=== PATIENT | female | born 1995 | race Caucasian/White ===

== ENCOUNTER 2017-09-21 07:34 | Emergency (ER) | payer BC ==
[2017-04-25 13:43] VITALS: Wt 55.8 kg
[~2017-09-21 07:34] MED LIST: DOCU-416 PO; IBUP600T22 PO; OMEP-125 PO; ONDA4TAB PO; OXYB10TA16 PO; OXYC-865 PO; TAMS0.4C25 PO
[2017-09-21] MEDS ORDERED: OSE75 FT (07:49)
[2017-09-21] MEDS ORDERED: ONDANSETRON 4 MG/2 ML VIAL IVP ONE (07:50)
[2017-09-21] MEDS ORDERED: MORPHINE 4 MG/ML SDV IVP ONE ×2 (07:50→09:20)
--- NOTE | 2017-09-21 08:10 | ER Report ---
History and Physical Time Seen By MD: 07:30 Hx. of Stated Complaint: PT HAVING R FLANK PAIN FOR 2 DAYS, GETTING WORSE WITH RADIATING PAIN TO RLQ. HX OF KIDNEY STONES HPI/ROS CHIEF COMPLAINT: Right flank pain HISTORY OF PRESENT ILLNESS: Patient is a 22-year-old female who presents to [facility] with complaint of right-sided flank pain. Patient has a history of left- sided kidney stone states similar presentation in terms of character and quality of pain. Patient reports nausea without vomiting. Pain is currently 6 out of 10 in intensity located in the right flank radiation to the groin. Patient denies dysuria hematuria. She denies . She denies any abnormal vaginal bleeding or discharge. REVIEW OF SYSTEMS: Respiratory: No cough, no dyspnea. Cardiovascular: No chest pain, no palpitations. Gastrointestinal: No vomiting, no abdominal pain. Musculoskeletal: No back pain. Allergies: Coded Allergies: Sulfa (Sulfonamide Antibiotics) (Verified Allergy, Intermediate, HIVES , ) Home Meds Active Scripts Famotidine (PEPCID) 20 Mg Tablet, 20 MG PO QDAY, #20 TAB 0 Refills Prov:GERMAIN ARREDONDO MD 09/21/17 Ondansetron (ZOFRAN ODT) 4 Mg Tab.rapdis, 4 MG PO Q8H Y for NAUSEA, #15 TAB.JOSE 0 Refills Prov:GERMAIN ARREDONDO MD 09/21/17 Hydrocodone Bit/Acetaminophen (HYDROCODON-ACETAMINOPHEN 5-325) 1 Each Tablet, 1 EACH PO Q4-6H Y for PAIN, #12 TAB 0 Refills TAKE ONE TABLET BY MOUTH EVERY 4-6 HOURS NEEDED FOR PAIN Prov:GERMAIN ARREDONDO MD 09/21/17 Ondansetron (ZOFRAN ODT) 4 Mg Tab.rapdis, 4 MG PO Q8H Y for NAUSEA, #20 TAB.JOSE 0 Refills Prov:GERMAIN ARREDONDO MD 04/23/17 Reported Medications Oseltamivir Phosphate (TAMIFLU) 75 Mg Cap, 75 MG FT, CAP 09/21/17 Ibuprofen (IBUPROFEN) 600 Mg Tablet, 1 TAB PO Q6H, TAB 04/27/17 Discontinued Reported Medications Oxybutynin Chloride (OXYBUTYNIN CHLORIDE ER) 10 Mg Tab.er.24, 10 MG PO QDAY, TAB.SR 04/27/17 Docusate Sodium (COLACE) 100 Mg Capsule, 100 MG PO, CAPSULE 04/27/17 Tamsulosin Hcl (FLOMAX) 0.4 Mg Cap.er.24h, 0.4 MG PO, CAP 04/27/17 Discontinued Scripts Ondansetron (ZOFRAN ODT) 4 Mg Tab.rapdis, 4 MG PO Q6H Y for NAUSEA/VOMITING, # 20 TAB.JOSE 0 Refills Prov:RUFINA ENAMORADO MD 04/27/17 Oxycodone Hcl/Acetaminophen (PERCOCET 5-325 MG TABLET) 1 Each Tablet, 1-2 EACH PO Q4-6H for PAIN, #25 TAB 0 Refills Prov:GERMAIN ARREDONDO MD 04/23/17 Past Medical/Surgical History Past mental history for kidney stone Hx Smoking: No Smoking Status: Never Smoker Hx Substance Use Disorder: No Hx Alcohol Use: No Constitutional Vital Sign - Last 24 Hours 09/21/17 09/21/17 09/21/17 09/21/17 07:38 07:41 08:00 08:30 Temp 98.5 Pulse 93 Resp 20 B/P (MAP) 117/76 117/76 (90) 116/74 (88) 118/69 (85) Pulse Ox 91 O2 Delivery Room Air 09/21/17 09/21/17 09/21/17 09/21/17 08:34 09:00 09:05 09:30 Pulse 77 65 B/P (MAP) 107/70 (82) 118/72 (87) Pulse Ox 98 98 09/21/17 09/21/17 09/21/17 09/21/17 09:35 09:40 10:00 10:10 Pulse 72 67 71 Resp 20 11 29 B/P (MAP) 103/63 (76) Pulse Ox 100 100 99 09/21/17 09/21/17 09/21/17 09/21/17 10:30 10:40 11:00 11:10 Pulse 71 51 Resp 11 14 B/P (MAP) 102/58 (73) 108/66 (80) Pulse Ox 99 100 09/21/17 09/21/17 09/21/17 09/21/17 11:13 11:18 11:30 11:48 Pulse 52 59 49 Resp 13 8 9 B/P (MAP) 98/67 (77) Pulse Ox 99 99 100 09/21/17 09/21/17 09/21/17 12:00 12:18 12:30 Pulse 75 Resp 20 B/P (MAP) 105/62 (76) 112/48 (69) Pulse Ox 100 Physical Exam General/Constitutional: Patient is awake, alert, nontoxic and in no acute respiratory distress. She appears moderately uncomfortable Head: Normocephalic and atraumatic. Eyes: Conjunctival clear, Pupils are equal and reactive to light. Extraocular muscles are intact and symmetrical. Sclera are clear and anicteric. Ears:External canals are clear. Tympanic membranes are clear with normal landmarks and light reflex. Nares: No rhinorrhea or bleeding. Turbinates are pink and moist. Oropharyngeal: Mucous membranes are moist. There is no pharyngeal erythema or exudate. There are no palatal petechiae. Uvula is midline and symmetrical. Neck: Supple, no adenopathy. Cardiovascular: Heart is regular rate and rhythm without audible murmurs, rubs or gallops. Pulmonary: Lungs are clear to auscultation bilaterally. There are no wheezes, rales, or rhonchi. Chest rise is symmetrical Abdomen: Soft, nontender, no guarding or peritoneal signs. Extremities: No gross deformities, No peripheral cyanosis. Able to move all 4 extremities. Neuro: Alert and oriented X3, Cranial nerves 2 thru 12 are intact and symmetrical. Patient has normal gait. Skin: No rashes, skin is warm dry and well perfused. Medical Decision Making Data Points Result Diagram: 09/21/17 0000 09/21/17 0803 Laboratory Hematology Test 09/21/17 00:00 09/21/17 08:03 Red Blood Count 4.75 M/uL (4.17-5.56) Mean Corpuscular Volume 90.6 fL (80.0-96.0) Mean Corpuscular Hemoglobin 30.9 pg (26.0-33.0) Mean Corpuscular Hemoglobin Concent 34.1 g/dL (32.0-36.0) Red Cell Distribution Width 13.2 % (11.5-14.5) Mean Platelet Volume 9.7 fL (7.2-11.1) Neutrophils (%) (Auto) 79.0 % (39.4-72.5) Lymphocytes (%) (Auto) 9.9 % (17.6-49.6) Monocytes (%) (Auto) 10.3 % (4.1-12.4) Eosinophils (%) (Auto) 0.7 % (0.4-6.7) Basophils (%) (Auto) 0.1 % (0.3-1.4) Nucleated RBC Relative Count (auto) 0.0 /100WBC Neutrophils # (Auto) 10.5 K/uL (2.0-7.4) Lymphocytes # (Auto) 1.3 K/uL (1.3-3.6) Monocytes # (Auto) 1.4 K/uL (0.3-1.0) Eosinophils # (Auto) 0.1 K/uL (0.0-0.5) Basophils # (Auto) 0.0 K/uL (0.0-0.1) Nucleated RBC Absolute Count (auto) 0.00 K/uL Total Bilirubin 0.4 mg/dl (0.2-1.3) Direct Bilirubin 0.1 mg/dl (0.0-0.3) Aspartate Amino Transf (AST/SGOT) 19 U/L (0-35) Alanine Aminotransferase (ALT/SGPT) 27 U/L (0-56) Alkaline Phosphatase 59 U/L (0-126) Total Creatine Kinase 28 U/L (30-135) Total Protein 7.7 gm/dl (6.3-8.2) Albumin 4.2 g/dl (3.5-5.0) Lipase 28 U/L (23-300) Urine Color Yellow Urine Clarity Clear Urine pH 5.0 pH (4.8-9.5) Urine Specific Redfield 1.017 Urine Protein Negative mg/dL (NEGATIVE) Urine Glucose (UA) Negative mg/dL (NEGATIVE) Urine Ketones Negative mg/dL (NEGATIVE) Urine Blood Negative (NEGATIVE) Urine Nitrite Negative (NEGATIVE) Urine Bilirubin Negative (NEGATIVE) Urine Urobilinogen 4.0 mg/dL (0.2-1.9) Urine Leukocyte Esterase Negative (NEGATIVE) Urine RBC <1 /HPF (0-2/HPF) Urine WBC 3 /HPF (0-5/HPF) Urine Squamous Epithelial Cells Many /LPF (</=FEW) Urine Bacteria Negative /HPF (NONE-FEW) Urine Mucus Few /HPF (NONE-FEW) Urine HCG, Qualitative Negative (NEGATIVE) Sodium Level 134 mmol/L (137-145) Potassium Level 2.8 mmol/L (3.5-5.0) Chloride Level 98 mmol/L (98-107) Carbon Dioxide Level 26 mmol/L (22-31) Blood Urea Nitrogen 6 mg/dl (7-18) Creatinine 0.70 mg/dl (0.52-1.04) Glomerular Filtration Rate Calc > 60.0 Random Glucose 92 mg/dl (75-110) Calcium Level 9.2 mg/dl (8.4-10.2) Chemistry Test 09/21/17 00:00 09/21/17 08:03 White Blood Count 13.3 k/uL (4.5-11.0) Red Blood Count 4.75 M/uL (4.17-5.56) Hemoglobin 14.7 g/dL (12.0-16.0) Hematocrit 43.0 % (34.0-47.0) Mean Corpuscular Volume 90.6 fL (80.0-96.0) Mean Corpuscular Hemoglobin 30.9 pg (26.0-33.0) Mean Corpuscular Hemoglobin Concent 34.1 g/dL (32.0-36.0) Red Cell Distribution Width 13.2 % (11.5-14.5) Platelet Count 172 K/uL (150-450) Mean Platelet Volume 9.7 fL (7.2-11.1) Neutrophils (%) (Auto) 79.0 % (39.4-72.5) Lymphocytes (%) (Auto) 9.9 % (17.6-49.6) Monocytes (%) (Auto) 10.3 % (4.1-12.4) Eosinophils (%) (Auto) 0.7 % (0.4-6.7) Basophils (%) (Auto) 0.1 % (0.3-1.4) Nucleated RBC Relative Count (auto) 0.0 /100WBC Neutrophils # (Auto) 10.5 K/uL (2.0-7.4) Lymphocytes # (Auto) 1.3 K/uL (1.3-3.6) Monocytes # (Auto) 1.4 K/uL (0.3-1.0) Eosinophils # (Auto) 0.1 K/uL (0.0-0.5) Basophils # (Auto) 0.0 K/uL (0.0-0.1) Nucleated RBC Absolute Count (auto) 0.00 K/uL Total Bilirubin 0.4 mg/dl (0.2-1.3) Direct Bilirubin 0.1 mg/dl (0.0-0.3) Aspartate Amino Transf (AST/SGOT) 19 U/L (0-35) Alanine Aminotransferase (ALT/SGPT) 27 U/L (0-56) Alkaline Phosphatase 59 U/L (0-126) Total Creatine Kinase 28 U/L (30-135) Total Protein 7.7 gm/dl (6.3-8.2) Albumin 4.2 g/dl (3.5-5.0) Lipase 28 U/L (23-300) Urine Color Yellow Urine Clarity Clear Urine pH 5.0 pH (4.8-9.5) Urine Specific Redfield 1.017 Urine Protein Negative mg/dL (NEGATIVE) Urine Glucose (UA) Negative mg/dL (NEGATIVE) Urine Ketones Negative mg/dL (NEGATIVE) Urine Blood Negative (NEGATIVE) Urine Nitrite Negative (NEGATIVE) Urine Bilirubin Negative (NEGATIVE) Urine Urobilinogen 4.0 mg/dL (0.2-1.9) Urine Leukocyte Esterase Negative (NEGATIVE) Urine RBC <1 /HPF (0-2/HPF) Urine WBC 3 /HPF (0-5/HPF) Urine Squamous Epithelial Cells Many /LPF (</=FEW) Urine Bacteria Negative /HPF (NONE-FEW) Urine Mucus Few /HPF (NONE-FEW) Urine HCG, Qualitative Negative (NEGATIVE) Glomerular Filtration Rate Calc > 60.0 Calcium Level 9.2 mg/dl (8.4-10.2) Urinalysis Test 09/21/17 08:03 Urine Color Yellow Urine Clarity Clear Urine pH 5.0 pH (4.8-9.5) Urine Specific Redfield 1.017 Urine Protein Negative mg/dL (NEGATIVE) Urine Glucose (UA) Negative mg/dL (NEGATIVE) Urine Ketones Negative mg/dL (NEGATIVE) Urine Blood Negative (NEGATIVE) Urine Nitrite Negative (NEGATIVE) Urine Bilirubin Negative (NEGATIVE) Urine Urobilinogen 4.0 mg/dL (0.2-1.9) Urine Leukocyte Esterase Negative (NEGATIVE) Urine RBC <1 /HPF (0-2/HPF) Urine WBC 3 /HPF (0-5/HPF) Urine Squamous Epithelial Cells Many /LPF (</=FEW) Urine Bacteria Negative /HPF (NONE-FEW) Urine Mucus Few /HPF (NONE-FEW) Urine HCG, Qualitative Negative (NEGATIVE) Microbiology Microbiology Date/Time Source Procedure Growth Status 09/21/17 08:03 Clean Catch Midstream Ur Urine Culture - Final CONTAMINATED URINE:... Complete EKG/Imaging Imaging FACILITY: [facility] PATIENT NAME: Raina Becker : 1995 MR: [id number] V: [id number] EXAM DATE: [id number] ORDERING PHYSICIAN: GERMAIN ARREDONDO TECHNOLOGIST: Location: [facility] Patient: Raina Becker : 1995 Visit/Account:[id number] Date of Sevice: 09/21/2017 EXAMINATION: PA and Lateral Chest 09/21/2017 9:02 AM HISTORY: Influenza COMPARISON: None FINDINGS: Cardiomediastinal contours: Normal Lungs and pleura: Lungs are voluminous but this is potentially related to the patient's build. No parenchymal infiltrate or consolidation. Pleural spaces are clear. Bones/soft tissues: Subtle scoliotic spinal curvature. IMPRESSION: Hypervoluminous lungs, potentially physiologic. Otherwise unremarkable chest. Report Dictated By: Eusebio Reyez MD at 09/21/2017 9:32 AM Report E-Signed By: Eusebio Reyez MD at 09/21/2017 9:35 AM WSN:[id number] FACILITY: [facility] PATIENT NAME: Raina Becker : 1995 MR: [id number] V: [id number] EXAM DATE: [id number] ORDERING PHYSICIAN: GERMAIN ARREDONDO TECHNOLOGIST: Location: [facility] Patient: Raina Becker : 1995 Visit/Account:[id number] Date of Sevice: 09/21/2017 EXAMINATION: CT Abdomen and Pelvis Without Contrast 09/21/2017 7:50 AM HISTORY: r flank [pain TECHNIQUE: Renal stone protocol - Spiral scan was obtained through the kidneys , ureters and bladder without intravenous contrast. One of the following dose optimization techniques was utilized in the performance of this exam: Automated exposure control; adjustment of the mA and/ or kV according to the patient's size; or use of an iterative reconstruction technique. Specific details can be referenced in the facility's radiology CT exam operational policy. COMPARISON STUDIES: 05/22/2017. FINDINGS: Right kidney and ureter: Small nonobstructive stone within the midportion of the right kidney is unchanged in position. No ureteral stone or obstruction. Left kidney and ureter: Negative. No stone or obstruction. Bladder: negative Liver / biliary: CBD measures 7 mm which is increased from previous. Reformats at least raise the possibility of a low-density stone in the distal CBD although this is certainly not definitively demonstrated on this evaluation. Pancreas: negative Spleen: Incidental small inferomedial accessory splenule. Adrenal glands: negative Retroperitoneum: negative Pelvic structures: Trace free fluid in the cul-de-sac is within physiologic normal range in a female of this age. Bowel / peritoneum / mesenteries: Negative. Normal appendix. Vessels: negative Musculoskeletal / Body wall: negative Lymph node assessment: negative Lower chest: negative IMPRESSION: 1. Stable nonobstructive small stone within the right kidney. No ureteral stone or obstruction on either side. 2. Interval increase in caliber of the CBD since the prior. Question of density along the distal CBD raises possibility of a noncalcified cholesterol stone in the duct. Is there any concern for acute biliary pathology clinically? Report Dictated By: Eusebio Reyez MD at 09/21/2017 9:24 AM Report E-Signed By: Eusebio Reyez MD at 09/21/2017 9:32 AM WSN:[id number] FACILITY: [facility] PATIENT NAME: Raina Becker : 1995 MR: [id number] V: [id number] EXAM DATE: ORDERING PHYSICIAN: GERMAIN ARREDONDO TECHNOLOGIST: Location: [facility] Patient: Raina Becker : 1995 Visit/Account:[id number] Date of Sevice: 09/21/2017 EXAMINATION: Limited right upper quadrant ultrasound 09/21/2017 9:39 AM HISTORY: pain. COMPARISON STUDIES: CT without contrast today with a 7 mm CBD FINDINGS: Gallbladder: no stones or sludge. Liver: Negative Common duct: CBD is measured at 4 mm sonographically. No visible choledocholithiasis. Pancreas: negative Right kidney: Unremarkable. Small stone shown by the CT was not well demonstrated sonographically. Upper abdominal aorta and IVC: negative Ascites: none IMPRESSION: Unremarkable abdominal ultrasound. CBD caliber measured by ultrasound is normal. The CT appearance may have been incidental unless the patient has persistent unexplained pain or abnormal LFTs in which case MRCP could be considered. Report Dictated By: Eusebio Reyez MD at 09/21/2017 11:01 AM Report E-Signed By: Eusebio Reyez MD at 09/21/2017 11:05 AM WSN:[id number] ED Course/Re-evaluation ED Course Patient with history of prior kidney stone on the left side now with similar type of pain on the right side. Plan at this time will be CT scan of the abdomen and pelvis without contrast will check urinalysis and basic metabolic panel. Patient was given 4 mg of morphine along with 4 mg of Zofran with improvement in both pain and nausea. Re-evaluation She remained symptom-free since approximately 10 AM. Patient was briefly seen by Dr. Timmons will follow the patient up in his clinic office after obtaining a HIDA scan and MRCP Decision to Disposition Date: Sep 21, 2017 Decision to Disposition Time: 12:25 Depart Departure Latest Vital Signs Vital Signs Date Time Temp Pulse Resp B/P (MAP) Pulse Ox O2 Delivery O2 Flow Rate FiO2 09/21/17 12:30 112/48 (69) 09/21/17 12:18 75 20 100 09/21/17 07:38 98.5 Room Air Impression: Primary Impression: Epigastric pain Condition: Improved Disposition: HOME OR SELF-CARE Referrals: CIRA WOOD MD (PCP) BRISEYDA GALLARDO MD [facility] Famotidine (PEPCID) 20 Mg Tablet 20 MG PO QDAY, #20 TAB 0 Refills Prov: GERMAIN ARREDONDO MD 09/21/17 Ondansetron (ZOFRAN ODT) 4 Mg Tab.rapdis 4 MG PO Q8H Y for NAUSEA, #15 TAB.JOSE 0 Refills Prov: GERMAIN ARREDONDO MD 09/21/17 Hydrocodone Bit/Acetaminophen (HYDROCODON-ACETAMINOPHEN 5-325) 1 Each Tablet 1 EACH PO Q4-6H Y for PAIN, #12 TAB 0 Refills TAKE ONE TABLET BY MOUTH EVERY 4-6 HOURS NEEDED FOR PAIN Prov: GERMAIN ARREDONDO MD 09/21/17 Departure Forms: ER Transition Record, Medications Reconciliation, Off Work/ School Form, School or Work Release?: School Number of days to be released: 2 Patient Portal Information Patient Instructions: Biliary Colic (ED) Additional Instructions: Follow-up as scheduled with Dr. Timmons. GERMAIN ARREDONDO MD Sep 21, 2017 08:10
[2017-09-21] MEDS ORDERED: KCL (*) 20 MEQ/100 ML PREMIX 100 ML IV ONE (08:15)
[2017-09-21] MEDS ORDERED: NS(*) 0.9% 1000 ML BAG 1,000 ML IV ONE ×2 (08:30→11:35)
[2017-09-21] MEDS ORDERED: FAMOTIDINE(*) 20MG/50ML PREMIX 50 ML IVPB ONE (08:40)
[2017-09-21 09:17] LABS: PLATELET COUNT, AUTOMATED 172 K/uL (150-450)
[2017-09-21] MEDS ORDERED: LORazepam 2 MG/ML VIAL IVP ONE (09:35)
--- NOTE | 2017-09-21 09:37 | RADIOLOGY IMAGING REPORT ---
FACILITY: [facility] PATIENT NAME: Raina Becker : 1995 MR: [id number] V: [id number] EXAM DATE: ORDERING PHYSICIAN: GERMIAN ARREDONDO TECHNOLOGIST: [place] [facility] [place] : 1995 Visit/Account:[id number] Date of Sevice: 09/21/2017 EXAMINATION: CT Abdomen and Pelvis Without Contrast 09/21/2017 7:50 AM HISTORY: r flank [pain TECHNIQUE: Renal stone protocol - Spiral scan was obtained through the kidneys, ureters and bladder without intravenous contrast. One of the following dose optimization techniques was utilized in the performance of this exam: Autom ated exposure control; adjustment of the mA and/or kV according to the patient's size; or use of an i terative reconstruction technique. Specific details can be referenced in the facility's radiology C T exam operational policy. COMPARISON STUDIES: 05/22/2017. FINDINGS: Right kidney and ureter: Small nonobstructive stone within the midportion of the right kidney is unch anged in position. No ureteral stone or obstruction. Left kidney and ureter: Negative. No stone or obstruction. Bladder: negative Liver / biliary: CBD measures 7 mm which is increased from previous. Reformats at least raise the pos sibility of a low-density stone in the distal CBD although this is certainly not definitively demonst rated on this evaluation. Pancreas: negative Spleen: Incidental small inferomedial accessory splenule. Adrenal glands: negative Retroperitoneum: negative Pelvic structures: Trace free fluid in the cul-de-sac is within physiologic normal range in a fema le of this age. Bowel / peritoneum / mesenteries: Negative. Normal appendix. Vessels: negative Musculoskeletal / Body wall: negative Lymph node assessment: negative Lower chest: negative IMPRESSION: 1. Stable nonobstructive small stone within the right kidney. No ureteral stone or obstruction on eit her side. 2. Interval increase in caliber of the CBD since the prior. Question of density along the distal CBD raises possibility of a noncalcified cholesterol stone in the duct. Is there any concern for acute bi liary pathology clinically? Report Dictated By: Eusebio Reyez MD at 09/21/2017 9:24 AM Report E-Signed By: Eusebio Reyez MD at 09/21/2017 9:32 AM WSN:[id number]
--- NOTE | 2017-09-21 09:38 | RADIOLOGY IMAGING REPORT ---
[place] [facility] [place] NAME: Raina Becker : 1995 MR: [id number] V: [id number] EXAM DATE: ORDERING PHYSICIAN: GERMAIN ARREDONDO TECHNOLOGIST: Location: [facility] Patient: Raina Becker : 1995 Visit/Account:[id number] Date of Sevice: 09/21/2017 EXAMINATION: PA and Lateral Chest 09/21/2017 9:02 AM HISTORY: Influenza COMPARISON: None FINDINGS: Cardiomediastinal contours: Normal Lungs and pleura: Lungs are voluminous but this is potentially related to the patient's build. No par enchymal infiltrate or consolidation. Pleural spaces are clear. Bones/soft tissues: Subtle scoliotic spinal curvature. IMPRESSION: Hypervoluminous lungs, potentially physiologic. Otherwise unremarkable chest. Report Dictated By: Eusebio Reyez MD at 09/21/2017 9:32 AM Report E-Signed By: Eusebio Reyez MD at 09/21/2017 9:35 AM WSN:[id number]
--- NOTE | 2017-09-21 11:08 | RADIOLOGY IMAGING REPORT ---
[place] [facility] [place] NAME: Raina Becker : 1995 MR: [id number] V: [id number] EXAM DATE: ORDERING PHYSICIAN: GERMAIN ARREDONDO TECHNOLOGIST: Location: [facility] [place] Patient: Raina Becker : 1995 Visit/Account:[id number] Date of Sevice: 09/21/2017 EXAMINATION: Limited right upper quadrant ultrasound 09/21/2017 9:39 AM HISTORY: pain. COMPARISON STUDIES: CT without contrast today with a 7 mm CBD FINDINGS: Gallbladder: no stones or sludge. Liver: Negative Common duct: CBD is measured at 4 mm sonographically. No visible choledocholithiasis. Pancreas: negative Right kidney: Unremarkable. Small stone shown by the CT was not well demonstrated sonographically. Upper abdominal aorta and IVC: negative Ascites: none IMPRESSION: Unremarkable abdominal ultrasound. CBD caliber measured by ultrasound is normal. The CT appearance ma y have been incidental unless the patient has persistent unexplained pain or abnormal LFTs in which c ase MRCP could be considered. Report Dictated By: Eusebio Reyez MD at 09/21/2017 11:01 AM Report E-Signed By: Eusebio Reyez MD at 09/21/2017 11:05 AM WSN:[id number]
[2017-09-21] MEDS ORDERED: FAMO20TA28 PO (12:27)
[2017-09-21] MEDS ORDERED: ONDA4TAB PO (12:27)
[2017-09-21] MEDS ORDERED: LOR5/325 PO (12:27)
[2017-09-21 12:30] VITALS: BP 112/48
== END 2017-09-21 12:41 | disposition home or self-care (01) ==
LOC: ER 08:12
DX: R10.13 Epigastric pain (principal)
CPT/HCPCS: 71046; 74176; 76705; 81001; 81025; 82248; 82550; 83690; 85025; 87088; 96361; 96365; 96367; 96375; 96376; 99285; J2060; J2270; J2405; J3480; J3490; J7030; 82040; 82247; 82310; 82374; 82435; 82565; 82947; 84075; 84132; 84155; 84295; 84450; 84460; 84520

== ENCOUNTER → 2018-02-14 | Outpatient (REF) | payer BC ==
[2017-04-25 13:43] VITALS: BMI 19.6
[~2018-02-14] MED LIST changes: +FAMO20TA28 PO; +LOR5/325 PO; +OSE75 FT
[2018-02-14 11:32] LABS: PLATELET COUNT, AUTOMATED 190 K/uL (150-450)
== END ==
PROVIDERS: ATTEND Physician Assistant Medical
DX: R06.00 Dyspnea, unspecified (principal)
CPT/HCPCS: 82040; 82247; 82310; 82374; 82435; 82565; 82947; 84075; 84132; 84155; 84295; 84450; 84460; 84520; 85025

== ENCOUNTER 2019-03-02 06:30 | Emergency (ER) | payer BC ==
[2017-04-25 13:43] VITALS: Wt 58.1 kg
[~2019-03-02 06:30] MED LIST changes: -OMEP-125 PO; +OMEP-126 PO
[2019-03-02] MEDS ORDERED: NS(*) 0.9% 1000 ML BAG 1,000 ML IV ONE (06:31)
--- NOTE | 2019-03-02 06:43 | ER Report ---
History and Physical Time Seen By MD: 06:36 Hx. of Stated Complaint: 12 WEEKS AND WIPED TO FIND BLOOD ON TOILET PAPER THIS MORNING. (CRISTIN CASTRO DO) HPI/ROS CHIEF COMPLAINT: Vaginal spotting HISTORY OF PRESENT ILLNESS: 23-year-old female , SAB 1 at 12 weeks. Started spotting this morning. She presents to the ER. She notes no abdominal cramping or pressure or pain. She denies dysuria. He notes no nausea, vomiting, diarrhea. She notes no fever or chills. REVIEW OF SYSTEMS: Respiratory: No cough, no dyspnea. Cardiovascular: No chest pain, no palpitations. Gastrointestinal: No vomiting, no abdominal pain. Musculoskeletal: No back pain. (CRISTIN CASTRO DO) Allergies: Coded Allergies: Sulfa (Sulfonamide Antibiotics) (Verified Allergy, Intermediate, HIVES , 03/02/19) Home Meds Active Scripts Ondansetron (ZOFRAN ODT) 4 Mg Tab.rapdis, 4 MG PO Q8H PRN for NAUSEA, #20 TAB.JOSE 0 Refills Prov:GERMAIN ARREDONDO MD 04/23/17 Discontinued Reported Medications Oseltamivir Phosphate (TAMIFLU) 75 Mg Cap, 75 MG FT, CAP 09/21/17 Ibuprofen (IBUPROFEN) 600 Mg Tablet, 1 TAB PO Q6H, TAB 04/27/17 Discontinued Scripts Famotidine (PEPCID) 20 Mg Tablet, 20 MG PO QDAY, #20 TAB 0 Refills Prov:GERMAIN ARREDONDO MD 09/21/17 Ondansetron (ZOFRAN ODT) 4 Mg Tab.rapdis, 4 MG PO Q8H PRN for NAUSEA, #15 TAB.JOSE 0 Refills Prov:GERMAIN ARREDONDO MD 09/21/17 Hydrocodone Bit/Acetaminophen (HYDROCODON-ACETAMINOPHEN 5-325) 1 Each Tablet, 1 EACH PO Q4-6H PRN for PAIN, #12 TAB 0 Refills TAKE ONE TABLET BY MOUTH EVERY 4-6 HOURS NEEDED FOR PAIN Prov:GERMAIN ARREDONDO MD 09/21/17 Past Medical/Surgical History Kidney stones. Status post cystoscopy and stent placement (CRISTIN CASTRO DO) Reviewed Nurses Notes: Yes Old Medical Records Reviewed: Yes (CRISTIN CASTRO DO) Hx Smoking: No Smoking Status: Never Smoker Hx Substance Use Disorder: No Hx Alcohol Use: No (CRISTIN CASTRO DO) Constitutional Vital Sign - Last 24 Hours 03/02/19 03/02/19 03/02/19 03/02/19 06:30 06:32 06:36 06:50 Temp 98.8 Pulse 66 74 65 Resp 18 B/P (MAP) 123/73 (90) 123/73 Pulse Ox 96 97 O2 Delivery Room Air 03/02/19 03/02/19 03/02/19 03/02/19 07:00 07:10 07:30 07:50 Pulse 62 65 68 B/P (MAP) 104/48 (66) 124/43 (70) Pulse Ox 98 85 100 03/02/19 03/02/19 08:00 08:10 Pulse 60 B/P (MAP) 108/64 (79) Pulse Ox 77 (RHIANNA CLAIRE MD) Physical Exam Vital signs stable, afebrile, pulse ox normal General Appearance: The patient is alert, has no immediate need for airway protection and no current signs of toxicity. No acute distress Eyes: Pupils equal and round no injection. Respiratory: Chest is non tender, lungs are clear to auscultation. Cardiac: regular rate and rhythm Gastrointestinal: Abdomen is soft and non tender, abdomen gravid, consistent with dates, no masses, bowel sounds normal. Musculoskeletal: Neck: Neck is supple and non tender. Extremities have full range of motion and are non tender. Skin: No rashes or lesions. DIFFERENTIAL DIAGNOSIS: After history and physical exam differential diagnosis was considered for vaginal bleeding including but not limited to ectopic , menses, miscarriage, and dysfunctional uterine bleeding. (CRISTIN CASTRO DO) Medical Decision Making Data Points Result Diagram: 03/02/19 0640 03/02/19 0640 Laboratory Hematology Test 03/02/19 06:40 White Blood Count 8.7 k/uL (4.5-11.0) Red Blood Count 4.68 M/uL (4.17-5.56) Hemoglobin 15.2 g/dL (12.0-16.0) Hematocrit 42.9 % (34.0-47.0) Mean Corpuscular Volume 91.7 fL (80.0-96.0) Mean Corpuscular Hemoglobin 32.6 pg (26.0-33.0) Mean Corpuscular Hemoglobin Concent 35.5 g/dL (32.0-36.0) Red Cell Distribution Width 13.2 % (11.5-14.5) Platelet Count 191 K/uL (150-450) Mean Platelet Volume 9.4 fL (7.2-11.1) Neutrophils (%) (Auto) 69.7 % (39.4-72.5) Lymphocytes (%) (Auto) 20.3 % (17.6-49.6) Monocytes (%) (Auto) 7.3 % (4.1-12.4) Eosinophils (%) (Auto) 2.1 % (0.4-6.7) Basophils (%) (Auto) 0.6 % (0.3-1.4) Nucleated RBC Relative Count (auto) 0.1 /100WBC Neutrophils # (Auto) 6.1 K/uL (2.0-7.4) Lymphocytes # (Auto) 1.8 K/uL (1.3-3.6) Monocytes # (Auto) 0.6 K/uL (0.3-1.0) Eosinophils # (Auto) 0.2 K/uL (0.0-0.5) Basophils # (Auto) 0.1 K/uL (0.0-0.1) Nucleated RBC Absolute Count (auto) 0.01 K/uL Chemistry Test 03/02/19 06:40 Sodium Level 134 mmol/L (137-145) Potassium Level 3.5 mmol/L (3.5-5.0) Chloride Level 100 mmol/L (98-107) Carbon Dioxide Level 25 mmol/L (22-31) Blood Urea Nitrogen 5 mg/dl (7-18) Creatinine 0.50 mg/dl (0.52-1.04) Glomerular Filtration Rate Calc > 60.0 Random Glucose 81 mg/dl (75-110) Calcium Level 9.1 mg/dl (8.4-10.2) Total Bilirubin 0.5 mg/dl (0.2-1.3) Aspartate Amino Transf (AST/SGOT) 16 U/L (0-35) Alanine Aminotransferase (ALT/SGPT) 20 U/L (0-56) Alkaline Phosphatase 34 U/L (0-126) Total Protein 7.6 g/dl (6.3-8.2) Albumin 4.3 g/dl (3.5-5.0) Human Chorionic Gonadotropin, Qual Positive (NEGATIVE) Human Chorionic Gonadotropin, Quant 255808 mIU/ml Coagulation Test 03/02/19 06:40 Prothrombin Time 13.4 seconds (12.0-14.4) Prothromb Time International Ratio 1.02 Activated Partial Thromboplast Time 29 seconds (23-35) Urinalysis Test 03/02/19 06:31 Urine Color Yellow Urine Clarity Clear Urine pH 7.0 pH (4.8-9.5) Urine Specific [place] 1.011 Urine Protein Negative mg/dL (NEGATIVE) Urine Glucose (UA) Negative mg/dL (NEGATIVE) Urine Ketones Negative mg/dL (NEGATIVE) Urine Blood Moderate (NEGATIVE) Urine Nitrite Negative (NEGATIVE) Urine Bilirubin Negative (NEGATIVE) Urine Urobilinogen Negative mg/dL (0.2-1.9) Urine Leukocyte Esterase Small (NEGATIVE) Urine RBC None /HPF (0-2/HPF) Urine WBC 1 /HPF (0-5/HPF) Urine Squamous Epithelial Cells Many /LPF (</=FEW) Urine Transitional Epithelial Cells Few /LPF (NONE-FEW) Urine Bacteria Few /HPF (NONE-FEW) Urine Mucus Few /HPF (NONE-FEW) (RHIANNA CLAIRE MD) ED Course/Re-evaluation Clinical Indication for ER IV: Hydration, IV Access Turned Over The care of the patient was turned over to Dr. Rhianna Claire. Dr. Castro I authorize my typed signature that I authenticated this report. (CRISTIN CASTRO DO) ED Course One episode of spotting this morning, and no bleeding since. Cerivx closed. Reported mild cramping pain that improved with IV fluids. IUP with good FHR noted on US. No abdominal pain. Gave patient pelvic rest instructions, and she will follow up with her OB doctor this week. Decision to Disposition Date: Mar 02, 2019 Decision to Disposition Time: 09:21 (RHIANNA CLAIRE MD) Depart Departure Latest Vital Signs Vital Signs Date Time Temp Pulse Resp B/P (MAP) Pulse Ox O2 Delivery O2 Flow Rate FiO2 03/02/19 08:10 60 77 03/02/19 08:00 108/64 (79) 03/02/19 06:36 98.8 18 Room Air (RHIANNA CLAIRE MD) Impression: Primary Impression: Threatened in first trimester Condition: Improved Disposition: HOME OR SELF-CARE Referrals: CIRA WOOD MD (PCP) Patient Instructions: Threatened Miscarriage (ED) CRISTIN CASTRO DO Mar 02, 2019 06:43 RHIANNA CLAIRE MD Mar 02, 2019 09:22
[2019-03-02 06:55] LABS: PLATELET COUNT, AUTOMATED 191 K/uL (150-450)
[2019-03-02 07:03] LABS: INR 1.02
--- NOTE | 2019-03-02 08:56 | RADIOLOGY IMAGING REPORT ---
FACILITY: [facility] - [place] PATIENT NAME: Raina Becker : 1995 MR: [id number] V: [id number] EXAM DATE: ORDERING PHYSICIAN: CRISTIN BAEZ TECHNOLOGIST: Location: [facility] - [place] Patient: Raina Becker : 1995 Visit/Account:[id number] Date of Sevice: 03/02/2019 OB TRANSVAGINAL History: Menstrual age 12 weeks and five days. Spot of blood at 6:00 AM ADDITIONAL HISTORY: none COMPARISON STUDIES: none FINDINGS: Intrauterine gestations: one presentation: Vertex heart rate: 150 bpm Amniotic fluid volume: AMEYA qualitatively normal. Placenta: Posterior left lateral. Inferior margin 2 cm from the placenta Maternal adnexa: negative Cervix: closed. Cervical length 4.9 cm Anatomic Survey: Fetus is too young to perform a survey Biometrics: BPD: 2.1 cm corresponding to 13 weeks and two days. 55th Percentile HC: 7.5 cm corresponding to 13 weeks and one day 37th Percentile AC: 6.5 cm corresponding to 13 weeks and two days 76th Percentile FL: 1.0 cm corresponding to 12 weeks and six days 47th Percentile Measurements are concordant or within normal variance with composite sonographic age of 13 weeks and one day within normal variance of clinical dates.. Estimated weight (EFW): 68 grams +/- 10 grams . 48th percentile based on clinical dates. IMPRESSION: Single living intrauterine gestation in vertex presentation with biometric measurements and composite sonographic age within normal variance of previously established clinical dates. Cervix long and closed. No pathology identified Report Dictated By: Rod Roblero MD at 03/02/2019 8:40 AM Report E-Signed By: Rod Roblero MD at 03/02/2019 8:48 AM WSN:[email or web address]
[2019-03-02 09:00] VITALS: BP 103/56
== END 2019-03-02 09:28 | disposition home or self-care (01) ==
LOC: ER 06:48
DX: O20.0 Threatened abortion (principal); Z3A.12 12 weeks gestation of pregnancy
CPT/HCPCS: 76817; 81001; 84702; 84703; 85025; 85610; 85730; 86850; 86900; 86901; 96360; 96361; 99284; J7030; 82040; 82247; 82310; 82374; 82435; 82565; 82947; 84075; 84132; 84155; 84295; 84450; 84460; 84520